=== PATIENT | male | born 2000 | race Two or more races ===

== ENCOUNTER 2022-01-06 13:07 | Emergency (ER) | payer OTHER ==
[~2022-01-06] VITALS: Ht 185.4 cm; Wt 73.9 kg
== END 2022-01-06 15:05 | disposition home or self-care (01) ==
LOC: ER 13:07
DX: H66.92 Otitis media, unspecified, left ear (principal)

== ENCOUNTER 2022-03-30 12:55 | Outpatient (CLI) | payer OTHER | END 2022-03-30 13:01 | disposition home or self-care (01) | LOC: RAD 12:55 | DX: M54.2 Cervicalgia (principal); M99.01 Segmental and somatic dysfunction of cervical region; M99.02 Segmental and somatic dysfunction of thoracic region ==